=== PATIENT | male | born 1990 | race Hispanic/Latino ===

== ENCOUNTER 2019-04-10 11:02 | Emergency (ER) | payer SELFPAY ==
[~2019-04-10] VITALS: Ht 177.8 cm; Wt 79.5 kg
[~2019-04-10 11:02] MED LIST: NO HOME MEDS
[2019-04-10] MEDS ORDERED: AUGMENTIN875TAB PO (11:44)
[2019-04-10] MEDS ORDERED: TESSALON PERLE100 MG PO (11:44)
[2019-04-10 11:45] VITALS: BP 123/61
== END 2019-04-10 11:45 | disposition home or self-care (01) | DRG 153 ==
LOC: ED 11:02
DX: J02.9 Acute pharyngitis, unspecified (principal); K03.81 Cracked tooth

== ENCOUNTER 2021-04-11 00:17 | Emergency (ER) | payer SELFPAY ==
[~2021-04-11] VITALS: Ht 177.8 cm; Wt 80.0 kg
[~2021-04-11 00:17] MED LIST changes: +AUGMENTIN875TAB PO; +TESSALON PERLE100 MG PO
[2021-04-11 02:35] VITALS: BP 118/69
== END 2021-04-11 02:38 | disposition home or self-care (01) | DRG 125 ==
LOC: ED 00:17
DX: T15.01XA Foreign body in cornea, right eye, initial encounter (principal); X58.XXXA Exposure to other specified factors, initial encounter